=== PATIENT | male | born 1990 | race African-American/Black ===

== ENCOUNTER 2018-11-12 13:03 | Emergency (ER) | payer MEDICAID, OTHER ==
[~2018-11-12] VITALS: Ht 180.3 cm; Wt 69.0 kg
[2018-11-12 13:24] VITALS: BP 108/63
== END 2018-11-12 17:30 | disposition home or self-care (01) ==
LOC: ER 13:06
DX: M54.2 Cervicalgia (principal); R51 Headache; V49.88XA Car occupant (driver) (passenger) injured in other specified transport accidents, initial encounter; Y93.89 Activity, other specified; Y92.89 Other specified places as the place of occurrence of the external cause; Y99.8 Other external cause status
CPT/HCPCS: 99284